=== PATIENT | female | born 1930 | race African-American/Black ===

== ENCOUNTER 2016-09-11 08:56 | Outpatient (CLI) | payer MEDICARE, BC ==
[2016-09-11 12:47] LABS: Hemoglobin A1c 6.1 % (4.0-6.0)
== END 2016-09-11 08:57 ==
LOC: NAVSJIPCSP 08:56
PROVIDERS: ATTEND Internal Medicine
DX: E11.29 Type 2 diabetes mellitus with other diabetic kidney complication (principal); E78.5 Hyperlipidemia, unspecified; Z79.899 Other long term (current) drug therapy
CPT/HCPCS: 36415; 80061; 83036

== ENCOUNTER 2016-12-11 09:52 | Outpatient (CLI) | payer MEDICARE, BC ==
[2016-12-11 13:13] LABS: Anion Gap 14 mmol/L (10-20); BUN (Urea Nitrogen) 12 mg/dL (9.8-20.1); Calc. Creatinine Clearance 0 mL/min (70-130); Calcium 11.1 mg/dL (7.8-10.44); Carbon Dioxide 23 mmol/L (23-31); Cardiac Risk 4.3 (Less than 4.5); Chloride 105 mmol/L (98-107); Cholesterol 206 mg/dl (< 200 Desired); Estimated GFR-MDRD 63; Glucose 118 mg/dL (83-110); HDL Cholesterol 48 mg/dL (>60 Neg Risk); LDL Cholesterol, Calculated 140 mg/dL; Potassium 4.2 mmol/L (3.5-5.1); Sodium 138 mmol/L (136-145); Triglycerides 90 mg/dL (Less than 150)
[2016-12-11 13:16] LABS: Hemoglobin A1c 6.1 % (4.0-6.0)
== END 2016-12-11 09:53 | disposition home or self-care (01) ==
LOC: NAVSJIPCSP 09:52
PROVIDERS: ATTEND Internal Medicine
DX: E11.29 Type 2 diabetes mellitus with other diabetic kidney complication (principal); E78.5 Hyperlipidemia, unspecified; E83.52 Hypercalcemia; Z79.899 Other long term (current) drug therapy
CPT/HCPCS: 36415; 80048; 80061; 83036